=== PATIENT | male | born 1955 | race African-American/Black ===

== ENCOUNTER 2017-04-12 22:48 | Emergency (ER) | payer OTHER, MEDICAID ==
[~2017-04-12] VITALS: Ht 177.8 cm; Wt 68.0 kg
[2017-04-12 22:56] VITALS: BP_SYST 145; BP_SYST 159; BP_DIAS 94; BP_DIAS 97
--- NOTE | 2017-04-12 23:00 | NUR ---
BIBA BLS TO ER BED 6
--- NOTE | 2017-04-12 23:01 | NUR ---
BIBA C/O LEFT ANKLE PAIN,05/18 AT THIS TIME, S/P MECHANICAL FALL. SKIN IS PINK/WARM/DRY; AAOX4; DENIES, N/V/D, CHEST PAIN, SOB. VSS; PATIENT POSITIONED FOR COMFORT; HOB ELEVATED; BEDRAILS UP X2; BED DOWN. ER MD MADE AWARE OF PT STATUS.
--- NOTE | 2017-04-12 23:05 | NUR ---
Ike madden in [facility] - 04/12/17 at 2309 by [facility] BIBA BLS TO ER BED 6
--- NOTE | 2017-04-12 23:22 | NUR ---
XRAY AT BEDSIDE.
[2017-04-13] MEDS: oxyCODONE/APAP 5/325 MG 1 TAB TAB PO ONE (01:39)
[2017-04-13 01:55] VITALS: BP 138/78
--- NOTE | 2017-04-13 01:55 | NUR ---
Patient discharged with v/s stable. Written and verbal after care instructions given and explained. Patient alert, oriented and verbalized understanding of instructions. Ambulatory with TUSHAR WRAP AND ORTHO SHOE AT LEFT FOOT. All questions addressed prior to discharge. ID band removed. Patient advised to follow up with PMD. Rx OF NORCO 5MG-325MG TAB EVERY 6 HOURS given. Patient educated on indication of medication including possible reaction and side effects. Opportunity to ask questions provided and answered.
== END 2017-04-13 01:55 | disposition home or self-care (01) ==
LOC: MED 22:48
DX: S93.402A Sprain of unspecified ligament of left ankle, initial encounter (principal); F20.9 Schizophrenia, unspecified; F31.9 Bipolar disorder, unspecified; F17.210 Nicotine dependence, cigarettes, uncomplicated; Z71.6 Tobacco abuse counseling; W18.30XA Fall on same level, unspecified, initial encounter; Y93.89 Activity, other specified; Y92.89 Other specified places as the place of occurrence of the external cause; Y99.8 Other external cause status
CPT/HCPCS: 73562; 73610; 99284; Q0092